=== PATIENT | male | born 2000 | race Caucasian/White ===

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

== ENCOUNTER 2021-07-15 20:49 | Inpatient (IN) | payer BC, MEDICAID ==
[~2021-07-15] VITALS: Ht 172.7 cm; Wt 80.7 kg
[~2021-07-15 20:49] MED LIST: BENZ2TAB10 PO; QUET50TA PO
[2021-07-15] MEDS ORDERED: BENZ1TAB10 PO (21:38)
[2021-07-15] MEDS ORDERED: RISP1TAB48 PO (21:38)
[2021-07-15 23:06] LABS: BASOPHILS % (AUTO) 0.2 % (0.0-2.0); EOSINOPHILS % (AUTO) 1.2 % (1.0-6.0); HEMATOCRIT 40.6 % (41-53); HEMOGLOBIN 13.7 g/dL (13.5-17.5); LYMPHOCYTES # (AUTO) 2.3 K/uL (1.0-4.8); LYMPHOCYTES % (AUTO) 27.5 % (22.0-44.0); MEAN CORPUSCULAR HGB CONC 33.7 G/dL (31.0-37.0); MEAN CORPUSCULAR VOLUME 92 fL (80-100); MONOCYTES # (AUTO) 0.7 K/uL (0.1-1.0); MONOCYTES % (AUTO) 8.6 % (2.0-9.0); NEUTROPHILS # (AUTO) 5.2 K/uL (1.8-7.7); NEUTROPHILS % (AUTO) 62.5 % (40.0-70.0); PLATELET COUNT (AUTO) 230 K/uL (150-450); RED BLOOD CELL COUNT(AUTO) 4.42 MIL/uL (4.50-5.90); RED CELL DISTRIBUTION WIDTH 13.3 % (11.5-14.5)
[2021-07-15 23:14] LABS: ANION GAP 5 mmol/L (8-16); CALCIUM, TOTAL 8.8 mg/dL (8.8-10.5); CARBON DIOXIDE 33 mmol/L (22-29); CHLORIDE 105 mmol/L (98-107); CREATININE 0.92 mg/dL (0.60-1.30); GLOMERULAR FILTR. RATE CALC > 60 mL/min (>60); GLUCOSE,RANDOM 96 mg/dL (70-110); POTASSIUM 3.9 mmol/L (3.5-5.1); SODIUM SERUM 143 mmol/L (136-145); UREA NITROGEN, BLOOD 8 mg/dL (7-18)
[2021-07-15 23:20] LABS: ALANINE AMINOTRANSFERASE 15 U/L (12-78); ALBUMIN 3.7 g/dL (3.4-5.0); ALKALINE PHOSPHATASE 89 U/L (46-116); ASPARTATE AMINOTRANSFERASE 16 U/L (15-37); BILIRUBIN,TOTAL 0.3 mg/dL (0.1-1.0); TOTAL PROTEIN, SERUM 6.9 g/dL (6.4-8.2)
[2021-07-15 23:21] LABS: ACETAMINOPHEN < 2 mcg/mL (10-30)
[2021-07-15 23:34] LABS: SALICYLATE < 2.8 mg/dL (2.8-20.0)
[2021-07-16 01:15] LABS: COVID AG,FIA SOURCE NASOPHARYNGEAL
[2021-07-16] MEDS ORDERED: HALOPERIDOL 5 MG TABLET PO PRN (01:15)
[2021-07-16] MEDS ORDERED: ZOLPIDEM TARTRATE 10 MG TABLET PO PRN (01:15)
[2021-07-16 02:40] LABS: APPEARANCE,URINE CLEAR (CLEAR); BILIRUBIN,URINE NEGATIVE (NEGATIVE); GLUCOSE, URINE (UA) NEGATIVE (NEGATIVE); KETONES,URINE NEGATIVE (NEGATIVE); LEUKOCYTE ESTERASE ,URINE NEGATIVE (NEGATIVE); NITRATE,URINE NEGATIVE (NEGATIVE); OCCULT BLOOD,URINE NEGATIVE (NEGATIVE); PROTEIN,URINE NEGATIVE (NEGATIVE); UROBILINOGEN,URINE 0.2 mg/dL (<=1.0)
[2021-07-16 02:43] LABS: AMPHET/METH SCREEN,URINE NEGATIVE (NEGATIVE); BARBITURATE SCREEN, URINE NEGATIVE (NEGATIVE); BENZODIAZEPINES SCREEN,URINE NEGATIVE (NEGATIVE); CANNABINOID SCREEN,URINE NEGATIVE (NEGATIVE); COCAINE SCREEN,URINE NEGATIVE (NEGATIVE); METHADONE SCREEN, URINE NEGATIVE (NEGATIVE); OPIATE SCREEN,URINE NEGATIVE (NEGATIVE)
[2021-07-16 02:44] LABS: PHENCYCLIDINE SCREEN,URINE NEGATIVE (NEGATIVE)
[2021-07-16] MEDS ORDERED: IBUPROFEN 400 MG TABLET PO PRN (07:15)
[2021-07-16] MEDS ORDERED: GuaiFENesin/D-METHORPHAN [SUGAR-FREE] 200-20MG/10 ML SYRUP UDCUP PO PRN (07:15)
[2021-07-16] MEDS ORDERED: DOCUSATE SODIUM 100 MG CAPSULE PO PRN (07:15)
[2021-07-16] MEDS ORDERED: MAGNESIUM HYDROXIDE SUSPENSION 30 ML UDCUP PO PRN (07:15)
[2021-07-16] MEDS ORDERED: MAG HYDROX/AL HYDROX/SIMETH ES 30 ML SUSPENSION UDCUP PO PRN (07:15)
[2021-07-16] MEDS ORDERED: PETROLATUM,WHITE 28 GM JELLY TP PRN (07:15)
[2021-07-16] MEDS ORDERED: ALBUTEROL SULFATE HFA 90 MCG/PUFF 8 GM INHALER IH PRN (07:15)
[2021-07-16] MEDS ORDERED: ACETAMINOPHEN 325 MG TABLET PO PRN (07:15)
[2021-07-16] MEDS ORDERED: ONDANSETRON HCL 4 MG TABLET PO PRN (07:15)
[2021-07-16] MEDS ORDERED: CloNIDine HCL 0.1 MG TABLET PO PRN (07:15)
[2021-07-16] MEDS ORDERED: NICOTINE 14 MG/24 HOUR PATCH TD PRN (07:15)
[2021-07-16] MEDS ORDERED: LOPERAMIDE HCL 2 MG CAPSULE PO PRN (07:15)
[2021-07-16 09:46] VITALS: BP 139/95
[2021-07-16 10:35] VITALS: BP 139/95
[2021-07-16 13:39] VITALS: BP 139/95
[2021-07-16 16:23] VITALS: BP 125/72
[2021-07-16] MEDS: BENZTROPINE MESYLATE 1 MG TABLET PO SCH (17:20)
[2021-07-16] MEDS: RisperiDONE 1 MG TABLET PO SCH (20:11)
[2021-07-16] MEDS: QUEtiapine FUMARATE 100 MG TABLET PO SCH (20:12)
[2021-07-17] MEDS: BENZTROPINE MESYLATE 1 MG TABLET PO SCH ×2 (08:36→17:53)
[2021-07-17 08:48] VITALS: BP 123/74
[2021-07-17 16:07] VITALS: BP 140/83
[2021-07-17] MEDS: QUEtiapine FUMARATE 100 MG TABLET PO SCH (20:50)
[2021-07-17] MEDS: RisperiDONE 1 MG TABLET PO SCH (20:50)
[2021-07-18 08:00] VITALS: BP 132/74
[2021-07-18] MEDS: BENZTROPINE MESYLATE 1 MG TABLET PO SCH ×2 (08:51→16:30)
[2021-07-18] MEDS: LORazepam 2 MG TABLET PO PRN (16:30)
[2021-07-18] MEDS: QUEtiapine FUMARATE 100 MG TABLET PO SCH (21:02)
[2021-07-18] MEDS: RisperiDONE 1 MG TABLET PO SCH (21:03)
[2021-07-19 08:00] VITALS: BP 136/65
[2021-07-19] MEDS: BENZTROPINE MESYLATE 1 MG TABLET PO SCH ×2 (09:00→16:30)
[2021-07-19 16:40] VITALS: BP 118/64
[2021-07-19] MEDS: QUEtiapine FUMARATE 100 MG TABLET PO SCH (20:27)
[2021-07-19] MEDS: RisperiDONE 1 MG TABLET PO SCH (20:28)
[2021-07-20] MEDS: BENZTROPINE MESYLATE 1 MG TABLET PO SCH ×2 (08:52→16:06)
[2021-07-20 09:22] VITALS: BP 117/72
[2021-07-20] MEDS: QUEtiapine FUMARATE 100 MG TABLET PO SCH (20:09)
[2021-07-20] MEDS: RisperiDONE 1 MG TABLET PO SCH (20:09)
[2021-07-21 08:00] VITALS: BP 138/74
[2021-07-21] MEDS: BENZTROPINE MESYLATE 1 MG TABLET PO SCH ×2 (08:16→16:13)
[2021-07-21 16:28] VITALS: BP 119/76
[2021-07-21] MEDS: QUEtiapine FUMARATE 100 MG TABLET PO SCH (20:16)
[2021-07-21] MEDS: RisperiDONE 1 MG TABLET PO SCH (20:17)
[2021-07-22 08:00] VITALS: BP 110/60
[2021-07-22] MEDS: BENZTROPINE MESYLATE 1 MG TABLET PO SCH ×2 (08:46→15:58)
[2021-07-22] MEDS: RisperiDONE 1 MG TABLET PO SCH ×2 (08:47→20:01)
[2021-07-22] MEDS: LORazepam 2 MG TABLET PO PRN (15:59)
[2021-07-22 17:18] VITALS: BP 130/77
[2021-07-22] MEDS: QUEtiapine FUMARATE 100 MG TABLET PO SCH (20:02)
[2021-07-23 07:38] LABS: COVID AG,FIA SOURCE NASAL SWAB
[2021-07-23 08:00] VITALS: BP 140/84
[2021-07-23] MEDS: RisperiDONE 1 MG TABLET PO SCH ×2 (11:25→20:21)
[2021-07-23] MEDS: BENZTROPINE MESYLATE 1 MG TABLET PO SCH ×2 (11:25→15:59)
[2021-07-23 16:42] VITALS: BP 126/67
[2021-07-23] MEDS: QUEtiapine FUMARATE 100 MG TABLET PO SCH (20:21)
[2021-07-24] MEDS: RisperiDONE 1 MG TABLET PO SCH (08:13)
[2021-07-24] MEDS: BENZTROPINE MESYLATE 1 MG TABLET PO SCH (08:13)
[2021-07-24 08:25] VITALS: BP 164/92
== END 2021-07-24 13:00 | disposition home or self-care (01) | DRG 750 ==
LOC: EMS 20:53 → 3EI 07-16 09:43 → 3EC 07-18 16:15
PROVIDERS: ADMIT Psychiatry & Neurology Child & Adolescent Psychiatry; ATTEND Psychiatry & Neurology Child & Adolescent Psychiatry
DX: F25.1 Schizoaffective disorder, depressive type (principal); Z59.00 Homelessness unspecified; F12.10 Cannabis abuse, uncomplicated; Z20.822 Contact with and (suspected) exposure to COVID-19; F32.9 Major depressive disorder, single episode, unspecified; T43.592A Poisoning by other antipsychotics and neuroleptics, intentional self-harm, initial encounter; T44.3X2A Poisoning by other parasympatholytics [anticholinergics and antimuscarinics] and spasmolytics, intentional self-harm, initial encounter; R03.0 Elevated blood-pressure reading, without diagnosis of hypertension; K59.00 Constipation, unspecified; Y92.89 Other specified places as the place of occurrence of the external cause; Z79.899 Other long term (current) drug therapy
CPT/HCPCS: 80053; 81003; 85025; 93005; 99285; G0480; G0481